=== PATIENT | male | born 1955 | race Caucasian/White ===

== ENCOUNTER 2018-01-10 12:44 | Emergency (ER) | payer BC ==
--- NOTE | 2018-01-10 14:25 | ED Physician Documentation ---
History of Present Illness - Stated complaint Stated Complaint: MALE - Chief complaint Chief Complaint: UTI - Additonal information Additional information: hx from pt 62 male has BPH and irinary retention and self caths had surgery to remove bladder stones about a m ago in [place] next will be getting prostate surgery was opn an antibiotic name unknown for a week after surgery to ED today with "sore balls" no fever no flank pain no NV no abd pain no rectal pain Review of Systems Constitutional: denies: Fever, Chills Cardiac: denies: Chest pain / pressure GI: denies: Abdominal Pain, Vomiting : reports: Unable to Void, Testicular pain Musculoskeletal: denies: Back pain Immunocompromised: denies: Immunocompromised PD PAST MEDICAL HISTORY - Present Medications Home Medications: Ambulatory Orders Medication Instructions Recorded Confirmed Aspirin [Adult Aspirin Regimen] 1 tab PO DAILY 01/10/18 01/10/18 Atorvastatin Calcium 1 tab PO DAILY 01/10/18 01/10/18 Ciprofloxacin HCl [Cipro] 500 mg PO BID #20 tablet 01/10/18 Finasteride 1 tab PO DAILY 01/10/18 01/10/18 Metoprolol Tartrate 1 tab PO BID 01/10/18 01/10/18 Multivit-Min/FA/Lycopen/Lutein 1 tab PO DAILY 01/10/18 01/10/18 [Centrum Silver Men Tablet] [place]-3/Dha/Epa/Fish Oil [Fish Oil 1 cap PO DAILY 01/10/18 01/10/18 1,000 mg Softgel] Ramipril 1 tab PO DAILY 01/10/18 01/10/18 Tamsulosin [Flomax] 1 tab PO BID 01/10/18 01/10/18 - Allergies Allergies/Adverse Reactions: Allergies Allergy/AdvReac Type Severity Reaction Status Date / Time No Known Drug Allergies Allergy Verified 01/10/18 12:51 PD ED PE NORMAL - Vitals Vital signs reviewed: Yes - Cardiac Cardiac: RRR - Respiratory Respiratory: No respiratory distress, Clear bilaterally - Abdomen Abdomen: Soft, Non tender - Male Male : Other (circ, no lesions, no dc, no hernia, L testicle swollen and tender with a focal tender lump and medial, nl lie) - Back Back: No CVA TTP Results - Vitals Vitals: Vital Signs - 24 hr 01/10/18 12:46 Temperature 36.5 C Heart Rate 62 Respiratory 16 Rate Blood Pressure 120/56 L O2 Saturation 99 - Labs Labs: Laboratory Tests 01/10/18 14:33 Urine Color YELLOW Urine Clarity HAZY Urine pH 5.0 Ur Specific [place] >=1.030 H Urine Protein NEGATIVE Urine Glucose (UA) NEGATIVE Urine Ketones NEGATIVE Urine Occult Blood NEGATIVE Urine Nitrite POSITIVE H Urine Bilirubin NEGATIVE Urine Urobilinogen 0.2 (NORMAL) Ur Leukocyte Esterase SMALL H Urine RBC 6-10 H Urine WBC >25 H Urine WBC Clumps PRESENT Ur Squamous Epith Cells NONE SEEN Urine Bacteria Many H Ur Microscopic Review INDICATED Urine Culture Comments INDICATED - Rads (name of study) sono Radiology: See rad report (enlarged hypervascular L epididymis with skin thickening c/w epidiymitis, nl testicles) Departure - Departure Disposition: Home, Self Care Clinical Impression: Epididymitis UTI (urinary tract infection) Qualifiers: Urinary tract infection type: acute cystitis Hematuria presence: with hematuria Qualified Code(s): N30.01 - Acute cystitis with hematuria Condition: Good Instructions: ED Epididymitis, ED UTI Cystitis Male Prescriptions: Ciprofloxacin HCl [Cipro] 500 mg PO BID #20 tablet Comments: Cipro is the best antibiotic for you at this time because of your enlarged prostate But occasionally this medication can have side effects such as nerve or tendon damage If you develop any unusual pain in your joints or numbness/weakness, please stop the medication immediately
[2018-01-10 14:50] LABS: BILIRUBIN,URINE NEGATIVE (NEGATIVE); GLUCOSE, URINE (UA) NEGATIVE (NEGATIVE); KETONES,URINE (UA) NEGATIVE (NEGATIVE); LEUKOCYTE ESTERASE, URINE SMALL (NEGATIVE); NITRITE,URINE POSITIVE (NEGATIVE); OCCULT BLOOD,URINE NEGATIVE (NEGATIVE); PROTEIN,URINE NEGATIVE (NEGATIVE); UROBILINOGEN,URINE 0.2 (NORMAL) E.U./dL (NORMAL)
[2018-01-10 14:56] LABS: BACTERIA,URINE Many /HPF (None Seen); CLARITY,URINE HAZY (CLEAR); WBC CLUMPS,URINE PRESENT
[2018-01-10 15:05] LABS: SQUAMOUS EPITHELIAL CELL,UR NONE SEEN (<= Few)
[2018-01-10] MEDS ORDERED: CIPROFLOXACIN 250 MG TABLET PO STA (16:03)
--- NOTE | 2018-01-10 16:27 | Ultrasound Report ---
SCROTAL DUPLEX: 01/10/2018 CLINICAL INDICATION: Pain, left swelling. FINDINGS: The right testicle measures 3.5 x 2.8 x 1.6 cm. It demonstrates normal echotexture and flow. No intratesticular mass is seen. The right epididymis appears unremarkable. The left testicle measures 3.3 x 2.9 x 2.3 cm. It demonstrates normal flow and echotexture. No intratesticular mass is seen. The left epididymis is enlarged, with a marked hypervascularity and left scrotal skin thickening, compatible with epididymitis. IMPRESSION: LEFT EPIDIDYMITIS, WITH OVERLYING SKIN THICKENING. NO EVIDENCE OF INTRATESTICULAR MASS. TD: 01/10/2018 16:27
[2018-01-10 17:43] VITALS: BP 131/66
== END 2018-01-10 17:44 | disposition home or self-care (01) ==
LOC: ED 12:44
DX: N45.1 Epididymitis (principal); N30.01 Acute cystitis with hematuria; N40.0 Benign prostatic hyperplasia without lower urinary tract symptoms; R33.9 Retention of urine, unspecified; Z79.82 Long term (current) use of aspirin
CPT/HCPCS: 51701; 76870; 81001; 87086; 93975; 99283; A9270; 81003; 87077